=== PATIENT | female | born 1975 | race African-American/Black ===

== ENCOUNTER 2017-09-04 19:46 | Emergency (ER) | payer MEDICAID, OTHER ==
[~2017-09-04] VITALS: Ht 160 cm; Wt 77.3 kg
[2017-09-04] MEDS ORDERED: KETOROLAC TROMETHAMINE 60 MG/2 ML VIAL IM ONE (21:45)
[2017-09-04 21:55] VITALS: BP 137/68
== END 2017-09-04 22:05 | disposition home or self-care (01) ==
LOC: EMS 19:47
DX: S83.92XA Sprain of unspecified site of left knee, initial encounter (principal); G89.29 Other chronic pain; F17.200 Nicotine dependence, unspecified, uncomplicated; Z88.5 Allergy status to narcotic agent; X58.XXXA Exposure to other specified factors, initial encounter; Y93.89 Activity, other specified; Y92.89 Other specified places as the place of occurrence of the external cause; Y99.8 Other external cause status
CPT/HCPCS: 29530; 96372; 99283; 99406; J1885

== ENCOUNTER 2017-10-04 09:50 | Emergency (ER) | payer OTHER ==
[~2017-10-04] VITALS: Ht 160 cm; Wt 77.0 kg
[2017-10-04] MEDS ORDERED: IBUPROFEN 600 MG TABLET PO ONE (11:00)
[2017-10-04] MEDS ORDERED: TraMADol HCL 50 MG TABLET PO ONE (11:00)
[2017-10-04 14:26] VITALS: BP 118/71
== END 2017-10-04 14:32 | disposition home or self-care (01) ==
LOC: EMS 09:55
DX: M79.671 Pain in right foot (principal); Z88.5 Allergy status to narcotic agent
CPT/HCPCS: 29515; 99284

== ENCOUNTER 2021-01-02 05:04 | Day surgery (SDC) | payer OTHER ==
[~2021-01-02] VITALS: Ht 160 cm; Wt 79.6 kg
[~2021-01-02 05:04] MED LIST: OMEP20 PO; RINGERS SOLUTION,LACTATED 1,000 ML IV ONE
[2021-01-02] MEDS ORDERED: PROPOFOL 1% 20 ML VIAL IVP ONE (05:05)
[2021-01-02] MEDS ORDERED: 0.9% SODIUM CHLORIDE 10 ML VIAL IVP ONE (05:05)
[2021-01-02] MEDS ORDERED: MIDAZOLAM HCL 2 MG/2 ML VIAL IVP ONE (05:05)
[2021-01-02] MEDS ORDERED: DEXAMETHASONE SOD PHOS 4 MG/ML VIAL IVP ONE (05:05)
[2021-01-02] MEDS ORDERED: ONDANSETRON HCL 4 MG/2 ML VIAL IVP ONE (05:05)
[2021-01-02] MEDS ORDERED: FentaNYL CITRATE PF 100 MCG/2 ML VIAL IVP ONE (05:05)
[2021-01-02] MEDS ORDERED: LIDOCAINE/PF 2% 5 ML VIAL IM ONE (05:05)
[2021-01-02 05:34] LABS: COVID AG,FIA SOURCE NASOPHARYNGEAL
[2021-01-02 05:38] LABS: BASOPHILS % (AUTO) 2.3 % (0.0-2.0); EOSINOPHILS % (AUTO) 0.5 % (1.0-6.0); HEMATOCRIT 28.1 % (36-46); HEMOGLOBIN 8.4 g/dL (12.0-16.0); LYMPHOCYTES # (AUTO) 1.3 K/uL (1.0-4.8); LYMPHOCYTES % (AUTO) 21.7 % (22.0-44.0); MEAN CORPUSCULAR HEMOGLOBIN 19.3 pg (26.0-34.0); MEAN CORPUSCULAR HGB CONC 29.8 G/dL (31.0-37.0); MEAN CORPUSCULAR VOLUME 65 fL (80-100); MONOCYTES # (AUTO) 0.5 K/uL (0.1-1.0); MONOCYTES % (AUTO) 8.4 % (2.0-9.0); NEUTROPHILS # (AUTO) 4.1 K/uL (1.8-7.7); NEUTROPHILS % (AUTO) 67.1 % (40.0-70.0); PLATELET COUNT (AUTO) 346 K/uL (150-450); RED BLOOD CELL COUNT(AUTO) 4.33 MIL/uL (4.00-5.20); RED CELL DISTRIBUTION WIDTH 24.7 % (11.5-14.5)
[2021-01-02 05:45] LABS: ANION GAP 10 mmol/L (8-16); CALCIUM, TOTAL 9.5 mg/dL (8.8-10.5); CARBON DIOXIDE 23 mmol/L (22-29); CHLORIDE 104 mmol/L (98-107); CREATININE 0.85 mg/dL (0.60-1.30); GLOMERULAR FILTR. RATE CALC > 60 mL/min (>60); GLUCOSE,RANDOM 99 mg/dL (70-110); POTASSIUM 3.8 mmol/L (3.5-5.1); SODIUM SERUM 137 mmol/L (136-145); UREA NITROGEN, BLOOD 20 mg/dL (7-18)
[2021-01-02 05:52] LABS: ALANINE AMINOTRANSFERASE 21 U/L (12-78); ALBUMIN 4.7 g/dL (3.4-5.0); ALKALINE PHOSPHATASE 88 U/L (46-116); ASPARTATE AMINOTRANSFERASE 22 U/L (15-37); BILIRUBIN,TOTAL 0.7 mg/dL (0.1-1.0); TOTAL PROTEIN, SERUM 8.4 g/dL (6.4-8.2)
[2021-01-02] MEDS ORDERED: RINGERS SOLUTION,LACTATED 1,000 ML IV ONE (06:00)
[2021-01-02] MEDS ORDERED: SODIUM CHLORIDE 0.9% 0 ML ONE ×2 (06:18→06:19)
[2021-01-02] MEDS ORDERED: BUPIVACAINE HCL/PF 0.25% 30 ML VIAL ONE (06:18)
[2021-01-02] MEDS ORDERED: LIDOCAINE/PF 1% 30 ML VIAL ONE (06:18)
[2021-01-02] MEDS ORDERED: VANCOMYCIN HCL 1 GM/VIAL ONE (06:18)
[2021-01-02] MEDS ORDERED: SUGAMMADEX SODIUM 200 MG/2 ML VIAL IVP ONE (06:18)
[2021-01-02] MEDS ORDERED: SODIUM CL IRRIG SOLN BAG 0 ML IRRIG ONE (06:19)
[2021-01-02] MEDS ORDERED: ONDANSETRON HCL 4 MG/2 ML VIAL ONE (08:55)
[2021-01-02] MEDS ORDERED: ONDANSETRON HCL 4 MG/2 ML VIAL IVP PRN (09:00)
== END 2021-01-02 10:10 | disposition home or self-care (01) ==
LOC: SURGERY 05:04
PROVIDERS: ATTEND Podiatrist Primary Podiatric Medicine
DX: S93.115A Dislocation of interphalangeal joint of left lesser toe(s), initial encounter (principal); M20.42 Other hammer toe(s) (acquired), left foot; M20.5X2 Other deformities of toe(s) (acquired), left foot; D64.9 Anemia, unspecified; E66.3 Overweight; X58.XXXA Exposure to other specified factors, initial encounter; Y93.89 Activity, other specified; Y92.89 Other specified places as the place of occurrence of the external cause; Y99.8 Other external cause status; F17.210 Nicotine dependence, cigarettes, uncomplicated; Z88.8 Allergy status to other drugs, medicaments and biological substances; Z98.890 Other specified postprocedural states; Z79.899 Other long term (current) drug therapy
CPT/HCPCS: 28285; 28675; 36415; 73630; 80053; 84703; 85025; 87426; 93005; C1716; C9803; J0690; J1100; J2250; J2405; J2704; J3010; J3490 ×3; J7120; A9575; J3370; J7030

== ENCOUNTER 2021-01-23 11:14 | Emergency (ER) | payer OTHER ==
[~2021-01-23] VITALS: Ht 160 cm; Wt 77.3 kg
[~2021-01-23 11:14] MED LIST changes: -RINGERS SOLUTION,LACTATED 1,000 ML IV ONE
[2021-01-23 11:16] VITALS: BP 135/87
[2021-01-23] MEDS ORDERED: OXYC-601 PO (11:18)
== END 2021-01-23 12:44 | disposition left against medical advice (07) ==
LOC: EMS 11:17
DX: S90.122A Contusion of left lesser toe(s) without damage to nail, initial encounter (principal); Z77.22 Contact with and (suspected) exposure to environmental tobacco smoke (acute) (chronic); Z88.5 Allergy status to narcotic agent; X58.XXXA Exposure to other specified factors, initial encounter; Y93.89 Activity, other specified; Y92.89 Other specified places as the place of occurrence of the external cause; Y99.8 Other external cause status
CPT/HCPCS: 99281; Z7502

== ENCOUNTER 2022-05-03 13:14 | Emergency (ER) | payer OTHER ==
[2022-05-03] VITALS (8 sets, daily range): BP systolic 100–121; BP diastolic 53–86
[~2022-05-03] VITALS: Ht 160 cm; Wt 70.0 kg
[~2022-05-03 13:14] MED LIST changes: -OMEP20 PO; +OXYC-490 PO
[2022-05-03] MEDS ORDERED: SODIUM CHLORIDE 0.9% 100 ML ONE (13:49)
[2022-05-03] MEDS ORDERED: IOHEXOL 350 MG/ML 100 ML VIAL ONE (13:50)
[2022-05-03 13:52] LABS: BASOPHILS % (AUTO) 1.7 % (0.0-2.0); EOSINOPHILS % (AUTO) 1.1 % (1.0-6.0); HEMATOCRIT 22.7 % (36-46); LYMPHOCYTES # (AUTO) 0.7 K/uL (1.0-4.8); LYMPHOCYTES % (AUTO) 11.1 % (22.0-44.0); MEAN CORPUSCULAR HEMOGLOBIN 18.7 pg (26.0-34.0); MEAN CORPUSCULAR HGB CONC 29.7 G/dL (31.0-37.0); MEAN CORPUSCULAR VOLUME 63 fL (80-100); MONOCYTES # (AUTO) 0.5 K/uL (0.1-1.0); MONOCYTES % (AUTO) 8.1 % (2.0-9.0); NEUTROPHILS # (AUTO) 5.1 K/uL (1.8-7.7); PLATELET COUNT (AUTO) 599 K/uL (150-450); RED BLOOD CELL COUNT(AUTO) 3.61 MIL/uL (4.00-5.20); RED CELL DISTRIBUTION WIDTH 25.7 % (11.5-14.5)
[2022-05-03 13:57] LABS: HEMOGLOBIN 6.7 g/dL (12.0-16.0)
[2022-05-03 14:05] LABS: ANION GAP 7 mmol/L (8-16); CALCIUM, TOTAL 9.5 mg/dL (8.8-10.5); CARBON DIOXIDE 27 mmol/L (22-29); CHLORIDE 102 mmol/L (98-107); CREATININE 0.58 mg/dL (0.60-1.30); GLOMERULAR FILTR. RATE CALC > 60 mL/min (>60); GLUCOSE,RANDOM 100 mg/dL (70-110); POTASSIUM 3.2 mmol/L (3.5-5.1); SODIUM SERUM 136 mmol/L (136-145); UREA NITROGEN, BLOOD 16 mg/dL (7-18)
[2022-05-03 14:07] LABS: ALANINE AMINOTRANSFERASE 26 U/L (12-78); ALKALINE PHOSPHATASE 98 U/L (46-116); ASPARTATE AMINOTRANSFERASE 32 U/L (15-37); BILIRUBIN,TOTAL 0.3 mg/dL (0.1-1.0); TOTAL PROTEIN, SERUM 7.8 g/dL (6.4-8.2)
[2022-05-03 14:09] LABS: INR 1.1 (0.9-1.1); PROTHROMBIN TIME 12.1 SEC (9.4-11.6)
[2022-05-03] MEDS ORDERED: ACETAMINOPHEN 1000 MG/ISO-OSM 100 ML IV ONE (14:45)
[2022-05-03] MEDS ORDERED: METOCLOPRAMIDE HCL 5 MG/ML 2 ML VIAL IVP ONE (14:45)
[2022-05-03] MEDS ORDERED: ASPIRIN 325 MG TABLET PO ONE (15:15)
[2022-05-03] MEDS ORDERED: ALTEPLASE PER STROKE PROTOCOL CLINICAL ONE (15:45)
[2022-05-03] MEDS ORDERED: PANTOPRAZOLE SODIUM 40 MG/VIAL IVP ONE (15:45)
[2022-05-03] MEDS ORDERED: PANTOPRAZOLE SODIUM 80 MG in SODIUM CHLORIDE 0.9% 100 ML IV SCH (15:45)
[2022-05-03] MEDS ORDERED: FAMOTIDINE 10 MG/ML 2 ML VIAL IVP ONE (16:00)
[2022-05-03] MEDS ORDERED: WATER FOR INJECTION STERILE IV ONE ×2 (16:00)
[2022-05-03] MEDS ORDERED: ALTEPLASE IV ONE ×2 (16:00)
[2022-05-03 16:25] LABS: HCG,QUANTITATIVE < 1 mIU/mL (0-6)
[2022-05-03 18:45] LABS: COVID AG,FIA SOURCE NASAL SWAB
== END 2022-05-03 20:08 | disposition short-term general hospital (02) ==
LOC: EMS 13:14
DX: I63.9 Cerebral infarction, unspecified (principal); D64.9 Anemia, unspecified; I65.21 Occlusion and stenosis of right carotid artery; F17.210 Nicotine dependence, cigarettes, uncomplicated; Z20.822 Contact with and (suspected) exposure to COVID-19; Z87.19 Personal history of other diseases of the digestive system; Z98.890 Other specified postprocedural states; Z88.8 Allergy status to other drugs, medicaments and biological substances
CPT/HCPCS: 99291; 70496; 36430; 37195; 96365; 96375; 71045; 96367; 87426; 80053; 84484; 84702; 85025; 85610; 85730; 86850; 86900; 86901; 86923; 36415; 70498; 82948; 93005; 70450; P9016; J3490; J2765; C9113; Q9967; J7050; J0131; J2997; 82962

== ENCOUNTER 2022-06-28 15:20 | Emergency (ER) | payer OTHER ==
[~2022-06-28] VITALS: Ht 160 cm; Wt 72.7 kg
[2022-06-28 15:36] VITALS: BP 161/98
[2022-06-28 16:07] LABS: COVID AG,FIA SOURCE NASAL SWAB
== END 2022-06-28 16:12 | disposition home or self-care (01) ==
LOC: EMS 15:28
DX: F17.210 Nicotine dependence, cigarettes, uncomplicated (principal); Z88.5 Allergy status to narcotic agent; Z20.822 Contact with and (suspected) exposure to COVID-19
CPT/HCPCS: 99283; 87426; C9803

== ENCOUNTER 2023-02-13 07:13 | Emergency (ER) | payer OTHER ==
[~2023-02-13] VITALS: Ht 160 cm; Wt 77.3 kg
[2023-02-13 07:14] VITALS: TEMP 98.3
[2023-02-13] MEDS ORDERED: TraMADol HCL 50 MG TABLET PO ONE (08:15)
[2023-02-13] MEDS ORDERED: TRAM-559 PO (08:24)
[2023-02-13 08:49] VITALS: BP 124/77; PULSE 91; RESP 16
== END 2023-02-13 09:03 | disposition home or self-care (01) ==
LOC: EMS 07:15
DX: S52.501A Unspecified fracture of the lower end of right radius, initial encounter for closed fracture (principal); F17.210 Nicotine dependence, cigarettes, uncomplicated; Z98.890 Other specified postprocedural states; Z88.8 Allergy status to other drugs, medicaments and biological substances; W18.30XA Fall on same level, unspecified, initial encounter; Y93.89 Activity, other specified; Y92.89 Other specified places as the place of occurrence of the external cause; Y99.8 Other external cause status
CPT/HCPCS: 99283

== ENCOUNTER 2023-12-11 12:31 | Emergency (ER) | payer OTHER ==
[~2023-12-11] VITALS: Ht 167.6 cm; Wt 65.9 kg
[~2023-12-11 12:31] MED LIST changes: -OXYC-490 PO; +TRAM50TA5 PO
[2023-12-11 12:38] VITALS: BP 128/77; PULSE 117; RESP 18; TEMP 98.4
== END 2023-12-11 16:15 | disposition home or self-care (01) ==
LOC: EMS 12:33
DX: S63.91XA Sprain of unspecified part of right wrist and hand, initial encounter (principal); S93.401A Sprain of unspecified ligament of right ankle, initial encounter; F17.210 Nicotine dependence, cigarettes, uncomplicated; Z88.5 Allergy status to narcotic agent; W54.1XXA Struck by dog, initial encounter; Y93.89 Activity, other specified; Y92.89 Other specified places as the place of occurrence of the external cause; Y99.8 Other external cause status
CPT/HCPCS: 99284; 73110-TC; 73130-TC; 73610-TC; Z7502